=== PATIENT | female | born 1990 ===

== ENCOUNTER 2017-11-07 12:32 | Emergency (ER) | payer OTHER ==
[2017-11-07 12:52] VITALS: BP 130/79
--- NOTE | 2017-11-07 13:37 | UC ---
Dizzy HPI HPI Summary: 27-year-old female presents with onset of feeling off balance since yesterday. Episodes last for a few seconds at a time. States she has been having these episodes once or twice a week for the last 2 months. She recently moved to the area from [place] where she had been evaluated by her primary care provider for same and was scheduled for an MRI which she did not get done before moving. Her present episode is associated with some right ear fullness, mild maxillary pressure, and a right posterior headache that radiates into her right posterior neck which started this morning. Describes the headache as a aching, throbbing. Rates as 6/10. Denies fever, chills, visual disturbances, photophobia, tinnitus, facial droop, slurred speech, nasal congestion or discharge, sore throat, chest pain, palpitations, shortness of breath, abdominal pain, nausea, vomiting, diarrhea, extremity numbness, tingling, or weakness. - History Of Current Complaint Chief Complaint: UCDizziness Stated Complaint: HEADACHE,DIZZY Time Seen by Provider: 11/07/17 13:08 Hx Obtained From: Patient Hx Last Menstrual Period: 10/28/17 ?: No Onset/Duration: Sudden Onset Timing: Intermittent Episode Lasting - few seconds Severity Initially: Moderate Severity Currently: Moderate Pain Intensity: 6 Character: Dizzy - feeling off balance Aggravating Factor(s): Nothing Alleviating Factor(s): Nothing Associated Signs And Symptoms: Negative: Nausea, Vomiting, Tinnitus, Chest Pain , SOB, Palpitations, Unsteady Gait, Visual Changes - Allergies/Home Medications Allergies/Adverse Reactions: Allergies Allergy/AdvReac Type Severity Reaction Status Date / Time amoxicillin Allergy Hives Verified 11/07/17 12:52 Penicillins Allergy Hives Verified 11/07/17 12:52 Home Medications: Home Medications Acetaminophen [APAP] 650 mg PO ONCE PRN 11/07/17 [History Confirmed 11/07/17] Norgestimate-Ethinyl Estradiol [Sprintec 28 Day Tablet] 1 tab PO DAILY 11/07/17 [History Confirmed 11/07/17] PMH/Surg Hx/FS Hx/Imm Hx Previously Healthy: Yes - Denies significant medical history - Surgical History Surgical History: None - Family History Family History: Noncontributory - Social History Occupation: Employed Full-time Lives: With Family Alcohol Use: Occasionally Substance Use Type: None Smoking Status (MU): Never Smoked Tobacco Review of Systems Constitutional: Negative Eyes: Negative ENT: Other - right ear fullness Respiratory: Negative Cardiovascular: Negative Gastrointestinal: Negative Neurological: Headache Is Patient Immunocompromised?: No All Other Systems Reviewed And Are Negative: Yes Physical Exam Triage Information Reviewed: Yes Appearance: Well-Appearing, No Pain Distress, Well-Nourished Vital Signs: Initial Vital Signs Temp 98.4 F 11/07/17 12:45 Pulse 68 11/07/17 12:45 Resp 18 11/07/17 12:45 BP 130/79 11/07/17 12:45 Pulse Ox 99 11/07/17 12:45 Vital Signs Reviewed: Yes Eyes: Positive: Conjunctiva Clear. Negative: Discharge ENT: Positive: Pharynx normal, TMs normal, Uvula midline. Negative: Nasal congestion, Nasal drainage Neck: Positive: Supple, Nontender, No Lymphadenopathy Respiratory: Positive: Lungs clear, Normal breath sounds, No respiratory distress Cardiovascular: Positive: RRR, No Murmur Neurological: Positive: Other: - AAOx4. PERRLA. Cranial nerves II-XII grossly intact. LE equal and strong. 2+ DTRs. Sensoromotor grossly intact. Coordination intact. Skin Exam: Normal Dizzy Course/Dx - Course Course Of Treatment: 27 year old female with 2 month history of intermittent episodes of disequalibrium. Current episode associated with a mild tension-type headache and right ear fullness hoewever unsure if these are related. Exam was unremarkable. Recommend that she establish with a PCP locally to follow up on the previous plans for MRI evaluation. Reviewed warning symptoms that would require immediate evaluation . Verbalizes understanding and agrees with POC. - Differential Dx/Diagnosis Differential Diagnosis/HQI/PQRI: Benign Paroxysmal Positional Vertigo, Labyrinthitis Provider Diagnoses: Vertigo Discharge - Sign-Out/Discharge Documenting (check all that apply): Patient Departure All imaging exams completed and their final reports reviewed: No Studies - Discharge Plan Condition: Stable Disposition: HOME Prescriptions: Meclizine HCl [Verticalm] 25 mg PO Q8HR PRN #30 tablet PRN Reason: Dizziness Patient Education Materials: Vertigo (ED) Referrals: No Primary Care Phys,NOPCP [Primary Care Provider] - [facility] [Outside] Additional Instructions: Start using meclizine 1 tablet every 8 hours as needed for dizziness. Try taking ibuprofen (Advil, Motrin) or naproxen (Aleve) according to directions as needed for headache. Your blood pressure was slightly elevated in the clinic today. Be sure you make an appointment to establish with your primary care provider within the next week. I have given you the number for the [facility] service to assist you if needed. Seek immediate medical attention in the emergency room if you have a sudden severe headache, visual disturbances, slurred or difficulty speaking, numbness, tingling, or weakness in her arms or legs especially for just one side of your body, are unable to ambulate, have any chest pain, feeling like her heart is racing or skipping beats, or any worsening of symptoms. - Billing Disposition and Condition Condition: STABLE Disposition: Home - Attestation Statements Provider Attestation: I was available for consult. This patient was seen by the ESTER. The patient was not presented to, seen by, or examined by me. -Casimiro
== END 2017-11-07 13:39 | disposition home or self-care (01) ==
LOC: UCEAST 12:32
DX: R42 Dizziness and giddiness (principal); G44.209 Tension-type headache, unspecified, not intractable; H93.91 Unspecified disorder of right ear; Z88.3 Allergy status to other anti-infective agents; Z88.0 Allergy status to penicillin
CPT/HCPCS: 99202; G0463